=== PATIENT | female | born 1965 | race African-American/Black ===

== ENCOUNTER 2016-12-05 21:55 | Emergency (ER) | payer BC ==
[~2016-12-05] VITALS: Ht 162.6 cm; Wt 96.2 kg
[2016-12-05 22:11] VITALS: BP 170/81
[2016-12-05] MEDS ORDERED: NAPROXEN 500 MG TABLET PO ONE (22:30)
[2016-12-05] MEDS ORDERED: HYDROcodone/APAP 5/325MG 1 TAB TABLET PO ONE (22:30)
[2016-12-05] MEDS ORDERED: CYCLOBENZAPRINE 10 MG TABLET. PO ONE (22:30)
[2016-12-05] MEDS ORDERED: HYDR-971 PO (22:39)
[2016-12-05] MEDS ORDERED: CYCL10TA2 PO (22:39)
--- NOTE | 2016-12-05 22:39 | PHYS DOC ---
Past Medical History Past Medical History: Diabetes-Type II, Hypertension Past Surgical History: Cholecystectomy Alcohol Use: None Drug Use: None Adult General Chief Complaint Chief Complaint: LOWER EXT PAIN HPI HPI Patient is a 51 year old female with a history of diabetes type 2, hypertension , low back pain with sciatica, who presents today with increased low back pain radiating to the left lower extremity specifically left foot for the last 1 month. Patient states he has been seen by the PCP who has tried a couple pain medicines including gabapentin and Medrol Dosepak and recommended she follows up with the pain clinic. She states she has an order to be seen by the pain clinic but does not have an appointment yet. Patient denies any trauma. Denies any numbness or tingling to bilateral lower extremities. Denies any loss of bowel bladder function. Patient states the pain is worse on ambulation especially weightbearing on the left lower extremity. Review of Systems Review of Systems Constitutional: Denies fever or chills [] GI: Denies abdominal pain, nausea, vomiting, bloody stools or diarrhea [] : Denies dysuria or hematuria [] Musculoskeletal: Low back pain radiating into the left lower extremity into the left foot. Integument: Denies rash or skin lesions [] Neurologic: Denies headache, focal weakness or sensory changes [] Current Medications Current Medications Current Medications Medications (Trade) Dose Ordered Sig/[facility] Start Time Stop Time Status Last Admin Dose Admin Acetaminophen/ Hydrocodone Bitart (Lortab 5/325) 2 tab 1X ONCE 12/05/16 22:30 12/05/16 22:31 DC 12/05/16 22:44 2 TAB Cyclobenzaprine HCl (Flexeril) 10 mg 1X ONCE 12/05/16 22:30 12/05/16 22:31 DC 12/05/16 22:44 10 MG Naproxen (Naprosyn) 500 mg 1X ONCE 12/05/16 22:30 12/05/16 22:31 DC 12/05/16 22:44 500 MG Allergies Allergies Allergies Coded Allergies Type Severity Reaction Last Updated Verified No Known Drug Allergies 07/07/13 No Physical Exam Physical Exam Constitutional: Well developed, well nourished, no acute distress, non-toxic appearance. [] Abdomen: Bowel sounds normal, soft, no tenderness, no masses, no pulsatile masses. [] Skin: Warm, dry, no erythema, no rash. [] Back: Tenderness to the left SI joint tenderness, no CVA tenderness. [] Extremities: No tenderness, no cyanosis, no clubbing, ROM intact, no edema. [] Neurologic: Alert and oriented X 3, normal motor function, normal sensory function, no focal deficits noted. [] Psychologic: Affect normal, judgement normal, mood normal. [] Current Patient Data Vital Signs Vital Signs Date Time Temp Pulse Resp B/P (MAP) Pulse Ox O2 Delivery O2 Flow Rate FiO2 12/05/16 22:11 98.3 80 18 99 Room Air 98.3 EKG EKG [] Radiology/Procedures Radiology/Procedures [] Course & Med Decision Making Course & Med Decision Making Pertinent Labs and Imaging studies reviewed. (See chart for details) Patient is in the ED with chronic left low back pain radiating to the left lower extremity, no known injury, no cauda equina syndrome symptoms. She was referred to a pain clinic doctor but does not have an appointment yet. I recommended she follows up with the pain clinic doctor as soon as she can. Dragon Disclaimer Dragon Disclaimer This electronic medical record was generated, in whole or in part, using a voice recognition dictation system. Departure Departure Impression: Primary Impression: Back pain Additional Impression: Sciatica of left side Disposition: 01 HOME, SELF-CARE Condition: STABLE Referrals: GIANNA PARISH MD (PCP) Follow-up with the primary care doctor as well as the pain clinic as soon as possible. Patient Instructions: Back Pain, Adult, Sciatica with Rehab-SportsMed Additional Instructions: You were seen with low back pain radiating to the left lower extremity. Kindly follow-up with the pain clinic doctor you were given as soon as possible. We will give the pain medications for couple days but will no refill this medications in the Ed. Scripts Cyclobenzaprine Hcl (CYCLOBENZAPRINE HCL) 10 Mg Tablet 1 TAB PO TID, #30 TAB Prov: YOSHI LAKE APRN 12/05/16 Hydrocodone/Apap 5-325 (NORCO 5-325 TABLET) 1 Each Tablet 1 TAB PO Q4HRS W/A, #10 TAB Prov: YOSHI LAKE APRN 12/05/16 Problem Qualifiers YOSHI LAKE APRN Dec 05, 2016 22:39
== END 2016-12-05 22:55 | disposition home or self-care (01) ==
LOC: ER 21:55
DX: M54.42 Lumbago with sciatica, left side (principal); E11.9 Type 2 diabetes mellitus without complications; I10 Essential (primary) hypertension; Z90.49 Acquired absence of other specified parts of digestive tract
CPT/HCPCS: 99284

== ENCOUNTER 2019-01-05 06:55 | Observation (INO) | payer BC ==
[2019-01-05] VITALS (18 sets, daily range): BP systolic 102–173; BP diastolic 54–84
[~2019-01-05] VITALS: Ht 162.6 cm; Wt 93.9 kg
[~2019-01-05 06:55] MED LIST: CYCL10TA2 PO; HYDR-3164 PO
[2019-01-05 07:33] LABS: HEMOGLOBIN 11.6 g/dL (12.0-15.5); RED BLOOD COUNT 3.88 x10^6/uL (3.50-5.40); RED CELL DISTRIBUTION WIDTH 16.1 % (11.5-14.5)
[2019-01-05 07:48] LABS: PROTHROMBIN TIME PATIENT 12.5 SEC (11.7-14.0)
[2019-01-05] MEDS ORDERED: AMLO10TA8 PO (07:48)
[2019-01-05] MEDS ORDERED: LISI1TAB19 PO (07:48)
[2019-01-05] MEDS ORDERED: GLIP5TAB10 PO (07:48)
[2019-01-05] MEDS ORDERED: CARV25TA2 PO (07:48)
[2019-01-05] MEDS ORDERED: INSU100I13 SQ (07:48)
[2019-01-05] MEDS ORDERED: GABA300C18 PO (07:48)
[2019-01-05] MEDS ORDERED: SITA1TAB11 PO (07:48)
[2019-01-05 07:56] LABS: CALCIUM 8.9 mg/dL (8.5-10.1); CREATININE 1.4 mg/dL (0.6-1.0); GFR 47.6; POTASSIUM 3.5 mmol/L (3.5-5.1)
[2019-01-05] MEDS ORDERED: IODIXANOL 320 MG/ML 100 ML VIAL. ONE (08:13)
[2019-01-05] MEDS ORDERED: LIDOCAINE 1% Multi-Dose 20 ML VIAL. ONE (08:13)
[2019-01-05] MEDS ORDERED: fentaNYL PF VIAL 100 MCG/2 ML VIAL ONE (09:04)
[2019-01-05] MEDS ORDERED: MIDAZOLAM HCL/PF 2 MG/2 ML VIAL. ONE (09:04)
[2019-01-05] MEDS ORDERED: MIDAZOLAM HCL/PF 2 MG/2 ML VIAL. IV ONE ×2 (09:30→11:15)
[2019-01-05] MEDS ORDERED: fentaNYL PF VIAL 100 MCG/2 ML VIAL IV ONE ×2 (09:30→11:15)
[2019-01-05] MEDS ORDERED: LIDOCAINE 1% Multi-Dose 20 ML VIAL. INJ ONE (09:30)
[2019-01-05] MEDS ORDERED: IODIXANOL 320 MG/ML 100 ML VIAL. IART ONE (09:30)
[2019-01-05] MEDS ORDERED: HEPARIN for IV BOLUS 10,000 UNIT/10 ML VIAL. ONE (09:45)
[2019-01-05] MEDS ORDERED: HEPARIN for IV BOLUS 10,000 UNIT/10 ML VIAL. IV ONE (10:00)
[2019-01-05] MEDS ORDERED: NITROGLYCERIN 200 MCG/2 ML SYRINGE FOR CATH/VASC LAB. IART ONE (10:15)
[2019-01-05] MEDS ORDERED: NITROGLYCERIN 200 MCG/2 ML SYRINGE FOR CATH/VASC LAB. ONE (10:29)
[2019-01-05] MEDS: IV 1/2 NORMAL SALINE 1,000 ML IV SCH ×3 (11:02→22:51)
--- NOTE | 2019-01-05 11:02 | PDOC ---
MODERATE SEDATION ASSESSMENT RISKS/ALTERNATIVES Risks/Alternatives Risks and alternatives of this type of sedation and procedure discussed with: RISK/ALTERNATIVES: Patient H & P ON CHART H & P H & P on chart and reviewed for co-morbid conditions and appropriate labs. H&P ON CHART: Yes STATUS PREG STATUS ASSESSED: N/A MEDS/ALLERGIES REVIEWED Meds/Allergies Reviewed Medications and Allergies including time and route of recently administered narcotics and sedatives. MEDS/ALLERGIES REVIEWED: Yes ASA RATING ASA RATING: II AIRWAY ASSESSMENT Airway Assessment Airway patency, oral function limitations, presence of caps, crowns, dentures, partials, and ability to extend neck assessed. AIRWAY ASSESSMENT: Yes MALLAMPATI SCORE MALLAMPATI SCORE: II PRE-SEDATION ASSESSMENT PRE-SEDATION ASSESSMENT: Yes RUT CHU MD Jan 05, 2019 11:02
[2019-01-05] MEDS ORDERED: ACETAMINOPHEN 325 MG TABLET. PO PRN (11:15)
[2019-01-05] MEDS ORDERED: 0.9 % SODIUM CHLORIDE 10 ML DISP.SYRIN. IV PRN (11:15)
--- NOTE | 2019-01-05 11:21 | CARD ---
MR#: [id number] Date of Study: 01/05/2019 Ordering Physician: RUT CHU, Referring Physician: RUT CHU Tech: POLLY FU RTR APPROVED REPORT Patient StatusOUT-PATIENT School Bus Driver/Mechanic: POLLY FU RTR Procedure(s) performed: 1. Aortogram with bilateral lower extremity runoff 2. Successful orbital atherectomy/CABLE MAINTAINER to chronic total occlusion involving the left superficial femo ral artery MODERATE SEDATION TIME: 85 MIN FLUORO TIME: 18.1 MIN DOSE: 54.4 GYCM2 CONTRAST: 124 INDICATION FOR PROCEDURE The indication(s) include : Peripheral artery disease with claudication. PROCEDURE NARRATIVE After explaining the risks, benefits and alternative options, informed consent was obtained from nesha ent. Patient was brought to the cardiac Counsel[facility] and her right groin was prepped and draped in the us ual fashion. 20 mL of 2% lidocaine was infiltrated into the skin and subcutaneous tissues for local a nesthesia. Arterial access was obtained in the right common femoral artery and a 5 Swedish sheath was inserted. 5 Swedish pigtail catheter was used to perform aortogram with bilateral lower extremity runo ff. The aortic alonzo was crossed with a 5 Swedish crossover catheter that was then exchanged to a 4 F rench angled glide catheter and with the tip positioned in the left superficial femoral artery, selec tive left lower extremity angiography was performed. Contrast injections were performed through the s tee in the right groin for selective right lower extremity angiography. The following findings were noted. FINDINGS 1. No significant stenosis involving the distal descending aorta 2. No significant stenosis involving bilateral common and external iliac arteries 3. No significant stenosis involving bilateral common femoral arteries 4. The left superficial femoral artery showed long 90% stenosis in the proximal segment followed by a long 100% chronic total occlusion in the midsegment. There is distal reconstitution from collateral s. The right superficial femoral artery showed long 60% stenoses in the proximal and distal segments and a discrete 80% stenosis in the midsegment. 5. No significant stenosis involving bilateral popliteal arteries. 6. There is good three vessel runoff below the knee bilaterally. INTERVENTION The sheath in the right groin was exchanged to a 6 Swedish 45 cm destination sheath that was advanced over the aortic alonzo with the help of across oval catheter and the tip was positioned in the proxim al portion of the left superficial femoral artery. The long chronic total occlusion involving the lef t superficial femoral artery was crossed with a Command ST guidewire with backup support from 4F angl ed glide catheter. This wire was then exchanged to Zoe Majesteer guidewire. Multiple orbital atherectomy pass es were then performed with 1.5 CSI Diamondback atherectomy jero in proximal, mid and distal segments of the left superficial femoral artery. The lesions were then dilated with 5.0 x 150 mm [employer] Armad a balloon. Follow-up angiography showed resolution of the lesions with good distal flow. Patient brennan rated the procedure well. The sheath in the right groin was exchanged to a small 6 Swedish sheath sinc e her ACT was high. This would be removed once ACT comes down below 170 [address] floor[address] Patient tolerat ed the procedure well. There were no immediate complications. Conclusion Bilateral lower extremity peripheral artery disease as described above including chronic total occlus ion involving the left superficial femoral artery Successful orbital atherectomy/CABLE MAINTAINER to the left superficial femoral artery Recommendations Vascular risk factor modification including regular exercise regimen, smoking cessation and statin th erapy We will consider staged CABLE MAINTAINER to the right superficial femoral artery at a later date Signed by : Rut Chu, Electronically Approved : 01/05/2019 11:21:15
[2019-01-05] MEDS ORDERED: CYCL10TA2 PO (11:48)
[2019-01-05] MEDS: amLODIPine BESYLATE 10 MG TABLET PO SCH (12:04)
[2019-01-05] MEDS: CYCLOBENZAPRINE 10 MG TABLET. PO SCH ×2 (12:29→20:40)
[2019-01-05] MEDS: hydroCHLOROthiazide 12.5 MG CAPSULE PO SCH (12:29)
[2019-01-05] MEDS: LISINOPRIL 20 MG TABLET PO SCH (12:29)
[2019-01-05] MEDS: INSULIN GLARGINE SYRINGE. SQ SCH (12:43)
[2019-01-05] MEDS: GABAPENTIN 300 MG CAPSULE. PO SCH ×2 (14:11→20:40)
[2019-01-05] MEDS: CARVEDILOL 12.5 MG TABLET. PO SCH (16:12)
[2019-01-05] MEDS ORDERED: ATORVASTATIN CALCIUM 40 MG TABLET. PO SCH (21:00)
[2019-01-06 03:00] VITALS: BP 134/74
[2019-01-06 05:08] LABS: CALCIUM 8.5 mg/dL (8.5-10.1); CREATININE 1.1 mg/dL (0.6-1.0); GFR 62.9; POTASSIUM 3.4 mmol/L (3.5-5.1)
[2019-01-06 07:00] VITALS: BP 118/72
[2019-01-06] MEDS ORDERED: glipiZIDE 5 MG TABLET PO SCH (08:00)
[2019-01-06] MEDS: hydroCHLOROthiazide 12.5 MG CAPSULE PO SCH (08:40)
[2019-01-06] MEDS: GABAPENTIN 300 MG CAPSULE. PO SCH (08:40)
[2019-01-06] MEDS: CYCLOBENZAPRINE 10 MG TABLET. PO SCH (08:41)
[2019-01-06] MEDS: LISINOPRIL 20 MG TABLET PO SCH (08:41)
[2019-01-06] MEDS: amLODIPine BESYLATE 10 MG TABLET PO SCH (08:41)
[2019-01-06] MEDS: CARVEDILOL 12.5 MG TABLET. PO SCH (08:41)
[2019-01-06] MEDS: INSULIN GLARGINE SYRINGE. SQ SCH (08:46)
--- NOTE | 2019-01-06 10:24 | PDOC3 ---
Discharge Summary Visit Information Date of Admission: Jan 05, 2019 Date of Discharge: Jan 06, 2019 Admitting Diagnosis: PAD with claudication Final Diagnosis PAD with claudication HTN HLP DM-2 Brief Hospital Course Allergies Allergies Coded Allergies Type Severity Reaction Last Updated Verified No Known Drug Allergies 07/07/13 No Vital Signs Vital Signs Date Time Temp Pulse Resp B/P (MAP) Pulse Ox O2 Delivery O2 Flow Rate FiO2 01/06/19 08:41 80 118/72 01/06/19 08:00 Room Air 01/06/19 07:00 97.3 16 99 97.3 01/06/19 03:00 2.0 Lab Results Laboratory Tests Test 01/05/19 07:25 01/05/19 10:38 01/05/19 12:24 01/05/19 12:33 White Blood Count 9.0 x10^3/uL (4.0-11.0) Red Blood Count 3.88 x10^6/uL (3.50-5.40) Hemoglobin 11.6 g/dL (12.0-15.5) Hematocrit 34.0 % (36.0-47.0) Mean Corpuscular Volume 88 fL (79-100) Mean Corpuscular Hemoglobin 30 pg (25-35) Mean Corpuscular Hemoglobin Concent 34 g/dL (31-37) Red Cell Distribution Width 16.1 % (11.5-14.5) Platelet Count 295 x10^3/uL (140-400) Prothrombin Time 12.5 SEC (11.7-14.0) Prothromb Time International Ratio 1.0 (0.8-1.1) Activated Partial Thromboplast Time 28 SEC (24-38) Sodium Level 142 mmol/L (136-145) Potassium Level 3.5 mmol/L (3.5-5.1) Chloride Level 105 mmol/L (98-107) Carbon Dioxide Level 29 mmol/L (21-32) Anion Gap 8 (6-14) Blood Urea Nitrogen 23 mg/dL (7-20) Creatinine 1.4 mg/dL (0.6-1.0) Estimated GFR (Cockcroft-Gault) 47.6 Glucose Level 103 mg/dL (70-99) Calcium Level 8.9 mg/dL (8.5-10.1) Activated Clotting Time 267 sec (92-181) 175 sec (92-181) Glucose (Fingerstick) 101 mg/dL (70-99) Test 01/05/19 20:47 01/06/19 04:10 01/06/19 07:38 Glucose (Fingerstick) 253 mg/dL (70-99) 167 mg/dL (70-99) Sodium Level 143 mmol/L (136-145) Potassium Level 3.4 mmol/L (3.5-5.1) Chloride Level 106 mmol/L (98-107) Carbon Dioxide Level 29 mmol/L (21-32) Anion Gap 8 (6-14) Blood Urea Nitrogen 22 mg/dL (7-20) Creatinine 1.1 mg/dL (0.6-1.0) Estimated GFR (Cockcroft-Gault) 62.9 Glucose Level 158 mg/dL (70-99) Calcium Level 8.5 mg/dL (8.5-10.1) Laboratory Tests Test 01/05/19 10:38 01/05/19 12:24 01/05/19 12:33 01/05/19 20:47 Activated Clotting Time 267 sec (92-181) 175 sec (92-181) Glucose (Fingerstick) 101 mg/dL (70-99) 253 mg/dL (70-99) Test 01/06/19 04:10 01/06/19 07:38 Sodium Level 143 mmol/L (136-145) Potassium Level 3.4 mmol/L (3.5-5.1) Chloride Level 106 mmol/L (98-107) Carbon Dioxide Level 29 mmol/L (21-32) Anion Gap 8 (6-14) Blood Urea Nitrogen 22 mg/dL (7-20) Creatinine 1.1 mg/dL (0.6-1.0) Estimated GFR (Cockcroft-Gault) 62.9 Glucose Level 158 mg/dL (70-99) Calcium Level 8.5 mg/dL (8.5-10.1) Glucose (Fingerstick) 167 mg/dL (70-99) Brief Hospital Course Ms. Bergman is a 53 old female with PAD with claudication underwent successful orbital atherectomy/DYE RANGE TENDER to left superficial femoral artery. She has residual 80% stenosis of right SFA that will be intervened upon in a staged fashion at a later date. She remained hemodynamically stable and symptom free during hospital stay and her groin looked good at the time of DC. She was started on baby ASA and statin therapy. The importance of smoking cessation was reemphasized. She will follow up with our office in one month. Discharge Information Condition at Discharge: Stable Follow Up: Months (1) Disposition/Orders: D/C to Home Scheduled Amlodipine Besylate (Amlodipine Besylate) 10 Mg Tablet, 10 MG PO DAILY for HTN, (Reported) Entered as Reported by: SHELLY ARTEAGA on 01/05/19747 Last Taken: Unknown Dose on 01/05/19 Last Action: Continued on 01/05/191150 by CHRIS GLASGOW Atorvastatin Calcium (Atorvastatin Calcium) 40 Mg Tablet, 40 MG PO QHS for hlp for 30 Days, #30 Ref 5 Prescribed by: RUT CHU on 01/06/19 1028 Carvedilol (Carvedilol) 25 Mg Tablet, 25 MG PO BIDWMEALS for CARDIAC, (Reported) Entered as Reported by: SHELLY ARTEAGA on 01/05/19747 Last Taken: Unknown Dose on 01/05/19 Last Action: Converted on 01/05/191150 by CHRIS GLASGOW Cyclobenzaprine Hcl (Cyclobenzaprine Hcl) 10 Mg Tablet, 10 MG PO BID for muscle spasm, (Reported) Entered as Reported by: HARINI DONNELLY RN on 01/05/19 1148 Last Action: Continued on 01/05/191150 by CHRIS GLASGOW Gabapentin (Gabapentin ) 300 Mg Capsule, 300 MG PO TID for NEUROGENIC PAIN, (Reported) Entered as Reported by: SHELLY ARTEAGA on 01/05/19747 Last Taken: Unknown Dose on 01/04/19 Last Action: Continued on 01/05/191150 by CHRIS GLASGOW Glipizide (Glipizide) 5 Mg Tablet, 2 TAB PO DAILY for Diabetes, #90 Ref 3 (Reported) Entered as Reported by: SHELLY ARTEAGA on 01/05/1948 Last Taken: Unknown Dose on 01/04/19 Last Action: Continued on 01/05/191150 by CHRIS GLASGOW Hydrocodone/Apap 5-325 ([place]inf[place] 5-325 Tablet) 1 Each Tablet, 1 TAB PO Q4HRS W/A, #10 Prescribed by: Ariana Leon APRN on 12/05/162238 Insulin Glargine,Hum.rec.anlog (Lantus Solostar) 100 Unit/1 Ml Insuln.pen, 23 UNIT SQ DAILYWBKFT for Diabetes, #15 Ref 5 (Reported) Entered as Reported by: SHELLY ARTEAGA on 01/05/19747 Last Taken: Unknown Dose on 01/04/19 Last Action: Converted on 01/05/191150 by CHRIS GLASGOW Lisinopril/Hydrochlorothiazide (Lisinopril-Hctz 20-12.5 Mg Tab) 1 Each Tablet, 1 TAB PO DAILY for HTN, #30 Ref 5 (Reported) Entered as Reported by: SHELLY ARTEAGA on 01/05/19747 Last Taken: Unknown Dose on 01/04/19 Last Action: Converted on 01/05/191150 by CHRIS GLASGOW Sitagliptin Phos/Metformin Hcl (Janumet 50-1,000 Mg Tablet) 1 Each Tablet, 2 TAB PO DAILYBFRSUP for Diabetes, #60 Ref 5 (Reported) Entered as Reported by: SHELLY ARTEAGA on 01/05/19747 Last Taken: Unknown Dose on 01/04/19 Last Action: HELD on 01/05/191150 by RUT HATFIELD MD Jan 06, 2019 10:23
[2019-01-06] MEDS ORDERED: ATOR40TA59 PO (10:28)
[2019-01-06 10:33] VITALS: BP 130/78
--- NOTE | 2019-01-06 11:56 | NUR ---
Discharge Note: DAJA GOMEZ [address] Discharge instructions and discharge home medications reviewed with Patient and a copy given. All questions have been answered and understanding verbalized. The following instructions and handouts were given: arteriogram after care Patient discharged to home with daughter via wheelchair
== END 2019-01-06 11:58 | disposition home or self-care (01) ==
LOC: CCL 06:55 → 2 SOUTH 10:40
PROVIDERS: ADMIT Internal Medicine Cardiovascular Disease; ATTEND Internal Medicine Cardiovascular Disease
DX: I73.9 Peripheral vascular disease, unspecified (principal); R07.9 Chest pain, unspecified; I10 Essential (primary) hypertension; E11.9 Type 2 diabetes mellitus without complications
CPT/HCPCS: 36415; 37225; 75630; 80048; 82962; 85027; 85347; 85610; 85730; 96365; 96372; 96375; C1724; C1725; C1769; C1892; C1894; G0378; G0379; J1644; J1815; J2250; J3010; J3490; J7030; Q9967; 99152; 99153

== ENCOUNTER → 2019-01-12 | Outpatient (CLI) | payer BC ==
[2019-01-06 10:33] VITALS: BP 130/78
[~2019-01-12] MED LIST changes: +AMLO10TA8 PO; +ATOR40TA59 PO; +CARV25TA2 PO; +GABA300C18 PO; +GLIP5TAB10 PO; +INSU100I13 SQ; +LISI1TAB19 PO; +REGADENOSON 0.4 MG/5 ML DISP.SYRIN. IV ONE; +SITA1TAB11 PO
--- NOTE | 2019-01-12 11:15 | CARD ---
MR#: [id number] Date of Study: 01/12/2019 Ordering Physician: RUT CHU, Referring Physician: RUT CHU Tech: Bella Linares RDCS APPROVED REPORT EXAM: Two-dimensional and M-mode echocardiogram with Doppler and color Doppler. Other Information Quality : Good INDICATION Chest Pain 2D DIMENSIONS RVDd2.5 (2.9-3.5cm)Left Atrium(2D)3.6 (1.6-4.0cm) IVSd1.1 (0.7-1.1cm)Aortic Root(2D)2.7 (2.0-3.7cm) LVDd4.3 (3.9-5.9cm)LVOT Diameter2.0 (1.8-2.4cm) PWd1.1 (0.7-1.1cm)LVDs2.8 (2.5-4.0cm) FS (%) 33.6 %SV51.2 ml LVEF(%)62.7 (>50%) Aortic Valve AoV Peak Rangel.133.8cm/sAoV VTI28.2cm AO Peak GR.7.2mmHgLVOT Peak Rangel.133.0cm/s LVOT VTI 26.10cmAO Mean GR.4mmHg SULMA (VMAX)3.86yp9RIJ (VTI)2.82cm2 Mitral Valve MV E Qddzrbuj83.2cm/sMV DECEL LQOH383pd MV A Orfwrtyj88.5cm/sMV QGF66ko E/A Ratio1.5MVA (PHT)5.09cm2 TDI E/Lateral E'12.1E/Medial E'16.5 Tricuspid Valve TR P. Ykjpqbcx846fj/sRAP XVYYMNGU6rdAl TR Peak Gr.00ekEvIYQN23huUp Pulmonary Vein S1 Zlwckceb21.5cm/sD2 Zxzfzguh91.4cm/s LEFT VENTRICLE The left ventricle is normal size. There is normal left ventricular wall thickness. The left ventricu lar systolic function is normal. The Ejection Fraction is 60-65%. There is normal LV segmental wall m otion. Transmitral Doppler flow pattern is Grade II-pseudonormal filling dynamics. RIGHT VENTRICLE The right ventricle is normal size. The right ventricular systolic function is normal. ATRIA The left atrium size is normal. The right atrium size is normal. The interatrial septum is intact wit h no evidence for an atrial septal defect or patent foramen ovale as noted on 2-D or Doppler imaging. AORTIC VALVE The aortic valve is calcified but opens well. Doppler and Color Flow revealed no significant aortic r egurgitation. There is no significant aortic valvular stenosis. MITRAL VALVE The mitral valve is normal in structure and function. There is no evidence of mitral valve prolapse. There is no mitral valve stenosis. Doppler and Color-flow revealed trace to mild mitral regurgitation . TRICUSPID VALVE The tricuspid valve is normal in structure and function. Doppler and Color Flow revealed mild tricusp id regurgitation. There is mild pulmonary hypertension. The PA pressure was estimated at 30 mmHg. The re is no tricuspid valve stenosis. PULMONIC VALVE The pulmonary valve is normal in structure and function. Doppler and Color Flow revealed no pulmonic valvular regurgitation. There is no pulmonic valvular stenosis. GREAT VESSELS The aortic root is normal in size. The ascending aorta is normal in size. The IVC is normal in size a nd collapses >50% with inspiration. PERICARDIAL EFFUSION There is no evidence of significant pericardial effusion. Critical Notification Critical Value: No <Conclusion> The left ventricular systolic function is normal. The Ejection Fraction is 60-65%. There is normal LV segmental wall motion. Trace to mild mitral regurgitation. Mild tricuspid regurgitation. The PA pressure was estimated at 30 mmHg. There is no evidence of significant pericardial effusion. Signed by : Rut Chu, Electronically Approved : 01/12/2019 11:14:59
--- NOTE | 2019-01-12 13:06 | RAD ---
MR#: [id number] Date of Study: 01/12/2019 Ordering Physician: RUT CHU, Referring Physician: MARIA ISABEL CONNOLLY Tech: MICHAEL Graves, ARRT (R) (N) APPROVED REPORT Test Type: Pharmacological Stress Nurse/Tech: Arline Coy RN Test Indications: Chest pain and HTN Cardiac History: Hypertension, Diabetes,smoker Medications: See Electronic Medical Record Medical History: See Electronic Medical Record Resting ECG: SR with BBB Resting Heart Rate: 76 bpm Resting Blood Pressure: 156/74mmHg Pretest Chest Pain: No chest pain Nurse/Tech Notes S1,S2 and lungs clear to auscultation. Consent: The procedure was explained to the patient in lay terms. Informed consent was witnessed. Zak eout was entered into [employer]. History and Stress Test performed by RT Michelle (Shvia) (N) Pharm. Details Pharmacologic stress testing was performed using 0.4mg per 5ml of regadenoson given intravenously ove r 7-10 seconds. Stress Symptoms No chest pain or symptoms. POST EXERCISE Reason for Termination: Infusion complete Target HR: No Max HR: 95 bpm 67% of Maximum Predicted HR: 141 bpm Max Blood Pressure: 153/73mmHg Blood Pressure response to exercise: Normal blood pressure response during stress. Heart Rate response to exercise: WNL Chest Pain: No. Arrhythmia: No. ST Change: No. INTERPRETATION Stress EKG Conclusion: The resting EKG shows a sinus rhythm and slight ST segment changes. The stress EKG shows no significant changes from baseline. No EKG evidence of stress-induced ischemia. Imaging Protocol IMAGE PROTOCOL: Rest Tc-99m/stress Tc-99m 1 day Rest: Stress: Viability: Radiopharm.Tc99m NrdentulhAz24p Sestamibi Ttcl7xUs 33mCi Img Date 01/12/2019 01/12/2019 Inj-Img Faiv36jiy. 60min. Rest Admin Site:IV - Right AntecubitalAdministrator:BRIT Morin)(N) Stress Admin Site: IV - Right AntecubitalAdministrator: Blake Jackson, RT (R)(N) STRESS DATA End Diast. Vol.97.0mlLVEDV index BSA49.0ml End Syst. Vol.25.0mlLVESV index BSA13.0ml Myocardial Mqid530.0gEject. Qbefwbul65.0% Stress Scores Regional WT0.00Summed WT0.00 Regional WM0.00Summed WM0.00 LV Perfusion The stress scans show no significant defects with minimally decreased uptake in the anterior wall. The rest scans show no significant defects. Nuclear imaging shows no reversible ischemia or infarct. Wall Motion Left ventricular systolic function is normal with no regional wall motion abnormalities and an ejecti on fraction of greater than 70%. LV Perf. Quant 17 Seg. SSS7.00 17 Seg. SRS1.00 17 Seg. SDS6.00 Stress Defect Extent (% LAD)0.00Rest Defect Extent (% LAD)0.00Rev. Defect Extent (% LAD)0.00 Stress Defect Extent (% LCX) 38.80Rest Defect Extent (% LCX)7.50Rev. Defect Extent (% LCX)17.50 Stress Defect Extent (% RCA)0.00Rest Defect Extent (% RCA)0.00Rev. Defect Extent (% RCA)0.00 Stress Defect Extent (% REMY)6.70Rest Defect Extent (% REMY)1.30Rev. Defect Extent (% REMY)3.00 Conclusion 1. No EKG evidence of stress-induced ischemia. 2. Nuclear imaging shows no reversible ischemia or infarct. 3. Normal left ventricular systolic function with an ejection fraction of greater than 70%. 4. Moderately low risk Lexiscan nuclear stress test. Signed by : Harris Barber MD Electronically Approved : 01/12/2019 13:05:53
== END | disposition home or self-care (01) ==
LOC: ECHO 08:38
PROVIDERS: ATTEND Internal Medicine Cardiovascular Disease
DX: I08.3 Combined rheumatic disorders of mitral, aortic and tricuspid valves (principal); I27.20 Pulmonary hypertension, unspecified; E11.9 Type 2 diabetes mellitus without complications; Z87.891 Personal history of nicotine dependence
CPT/HCPCS: 78452; 93017; 93306; A9500; J2785